=== PATIENT | female | born 1955 | race Caucasian/White ===

== ENCOUNTER 2019-04-28 08:50 | Emergency (ER) | payer MEDICARE, OTHER ==
[2019-04-28 12:17] VITALS: BP 0/0
--- NOTE | 2019-04-29 06:27 | ED ---
Upper Extremity Pain - HPI Summary HPI Summary: Patient is a 63-year-old female who presents emergency department for reevaluation of a known left humeral fracture. Patient is from [place] and is visiting her daughter and [place] for the week. Patient states last week she fell and fractured her left humerus. She was seen by orthopedics in [place] and was placed in an immobilizer and conservative management. Patient states since yesterday she feels that her left arm appears different and she is worried that fracture has shifted. Patient denies any new injuries or falls. Patient denies increased pain. Denies Numbness or tingling. Symptoms are mild in severity. No current modifying factors. - History of Current Complaint Chief Complaint: EDExtremityUpper Stated Complaint: LT ARM INJURY FROM FALL Time Seen by Provider: 04/28/19 11:14 Hx Obtained From: Patient, Family/[employer] Installer - Allergies/Home Medications Allergies/Adverse Reactions: Allergies Allergy/AdvReac Type Severity Reaction Status Date / Time lithium Allergy Diarrhea Verified 04/28/19 11:28 Home Medications: Home Medications Gabapentin 1,200 mg PO DAILY 04/28/19 [History Confirmed 04/28/19] Levothyroxine Sodium 88 mcg PO DAILY 04/28/19 [History Confirmed 04/28/19] OLANZapine [Olanzapine] 20 mg PO DAILY 04/28/19 [History Confirmed 04/28/19] Pravastatin Sodium 40 mg PO DAILY 04/28/19 [History Confirmed 04/28/19] Suvorexant [Belsomra] 10 mg PO BEDTIME 04/28/19 [History Confirmed 04/28/19] Zolpidem TAB* 10 mg PO BEDTIME 04/28/19 [History Confirmed 04/28/19] PMH/Surg Hx/FS Hx/Imm Hx Previously Healthy: Yes Infectious Disease History: No Infectious Disease History: Denies: Traveled Outside the [place] in Last 30 Days - Family History Known Family History: Positive: Non-Contributory - Social History Occupation: Retired Lives: With Family Alcohol Use: Occasionally Substance Use Type: Reports: None Smoking Status (MU): Former Smoker Review of Systems Positive: Other - left arm fx Positive: Bruising Neurological: Negative Negative: Weakness, Paresthesia All Other Systems Reviewed And Are Negative: Yes Physical Exam Triage Information Reviewed: Yes Vital Signs On Initial Exam: Initial Vitals Temp Pulse Resp BP Pulse Ox 97.9 F 83 18 163/86 95 04/28/19 08:51 04/28/19 08:51 04/28/19 08:51 04/28/19 08:51 04/28/19 08:51 Vital Signs Reviewed: Yes Appearance: Positive: Well-Appearing - Pt. sitting in chair in NAD. present. Immobilizer on left arm. Skin: Positive: Warm, Dry Head/Face: Positive: Normal Head/Face Inspection Eyes: Positive: Normal, EOMI Neck: Positive: Supple Musculoskeletal: Positive: Other - Good radial pulse to left arm. Ecchymosis and mild edema noted to the left proximal arm. Compartments are soft. Neurological: Positive: Normal, CN Intact II-III Psychiatric: Positive: Affect/Mood Appropriate Diagnostics - Vital Signs Vital Signs Temp Pulse Resp BP Pulse Ox 04/28/19 12:14 0 F 0 0 0/0 0 04/28/19 10:50 97.1 F 72 18 142/84 99 04/28/19 08:51 97.9 F 83 18 163/86 95 - Laboratory Lab Statement: Any lab studies that have been ordered have been reviewed, and results considered in the medical decision making process. Course/Dx - Course Course Of Treatment: Pt. presenting for re-evaluation of left humeral fx. Pt. very concerned fracture has shifted. Benign exam. Xray was repeated in triage. Reading per radiology: IMPRESSION: OBLIQUE, DISPLACED, ANGULATED FRACTURE OF THE PROXIMAL DIAPHYSIS OF THE. HUMERUS. Xray reviewed with pt. and . feels fracture is more displaced. Explained to pt. that there is likely no change in management. Pt. asked me to speak with her ortho. physician. After I left the room to call her physician, pt. and apparently eloped from the ER. - Diagnoses Differential Diagnosis/HQI/PQRI: Positive: Fracture (Closed) Provider Diagnoses: Humeral fracture Discharge - Sign-Out/Discharge Documenting (check all that apply): Patient Departure Patient Received Moderate/Deep Sedation with Procedure: No - Discharge Plan Condition: Good Disposition: HOME Referrals: No Primary Care Phys,NOPCP [Primary Care Provider] - - Billing Disposition and Condition Condition: GOOD Disposition: Home
== END 2019-04-28 12:14 | disposition home or self-care (01) ==
LOC: ED 08:50
DX: S42.292A Other displaced fracture of upper end of left humerus, initial encounter for closed fracture (principal); W19.XXXA Unspecified fall, initial encounter; Y92.9 Unspecified place or not applicable; Z79.899 Other long term (current) drug therapy; Z88.8 Allergy status to other drugs, medicaments and biological substances; Z87.891 Personal history of nicotine dependence
CPT/HCPCS: 99281